=== PATIENT | female | born 1970 | race Hispanic/Latino ===

== ENCOUNTER 2018-10-26 16:18 | Emergency (ER) | payer OTHER ==
[~2018-10-26] VITALS: Ht 160 cm; Wt 98.0 kg
--- OUTSIDE RECORDS SUMMARY | 2018-10-26 16:20 | XMS REPORT ---
Author Author Laila Forrest [facility] eClinicalWorks Address Unknown Phone Unavailable Care Team Providers Care Paint Line Supervisor Name Role Phone Laila Forrest CP Unavailable Allergies, Adverse Reactions, Alerts Substance Reaction Event Type N.K.D.A. Info Not Available Non Drug Allergy Encounters Encounter Location Date 2 Weeks (Reason: Follow up of tests) Mahendra Forrest MD October 30, 2014 order Mahendra Forrest MD Mar 13, 2015 3m adrenal gland Mahendra Forrest MD February 04, 2015 edarby-clor change Mahendra Forrest MD November 27, 2014 1 Week (Reason: Follow up of urine catecholamines test) Mahendra Forrest MD November 05, 2014 Mass Kidney irregular hormones Mahendra Forrest MD October 15, 2014 Problems Problem Type Condition ICD-9 Code Onset Dates Condition Status Assessment Obesity, unspecified 278.00 Active Assessment Depression with anxiety 300.4 Active Problem Adrenal Gland Mass - Unspecified 239.7 Active Problem Obesity, unspecified 278.00 Active Problem 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 Assessment 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 Assessment Hypertension 401.1 Active Problem Hypertension 401.1 Active Problem Depression with anxiety 300.4 Active Medications Medication Code System Code Instructions Start Date End Date Status Dosage ondansetron MULTUM 54038 4 mg orally 3 times a day Active 1 tab(s) amoxicillin MULTUM 13168 875 mg orally 2 times a day Active 1 tab(s) Edarbyclor MULTUM 435632 40 mg-25 mg orally once a day October 30, 2014 Active 1 tab(s) alprazolam MULTUM 93801 1 mg orally once a day (in the morning) October 30, 2014 Active 1 tab(s) Benicar HCT MULTUM 43406 25 mg-40 mg orally once a day November 27, 2014 Active 1 tab(s) Social History Social History Element Qualifiers Date Reported Language: . Italian February 04, 2015 Marital Status: . February 04, 2015 Caffeine: yes. frequency:, 2 c/day February 04, 2015 Exercise: no. February 04, 2015 Smoking/Tobacco Use: no. Patient is a: Current Smoker cannabis February 04, 2015 Alcohol: socially. Occasional drinker February 04, 2015 Occupation: employed. [employer]er February 04, 2015 Vital Signs Date/Time: February 04, 2015 Weight 187 lbs Height 64 in Blood Pressure Diastolic 80 mm Hg Blood Pressure Systolic 136 mm Hg Summary Purpose eClinicalWorks Submission
--- OUTSIDE RECORDS SUMMARY | 2018-10-26 16:20 | XMS REPORT ---
Author Author [facility] Address Unknown Phone Unavailable Care Team Providers Care Property And Equipment Clerk Name Role Phone Unavailable Unavailable Problems This patient has no known problems. Allergies, Adverse Reactions, Alerts This patient has no known allergies or adverse reactions. Medications This patient has no known medications. Encounters Start Date/Time End Date/Time Encounter Type Admission Type Attending [facility] Care Department Encounter ID 2017-06-14 00:00:00 2017-06-15 00:00:00 [facility] [id number]
--- OUTSIDE RECORDS SUMMARY | 2018-10-26 16:20 | XMS REPORT ---
Author Author Laila Forrest Organization eClinicalWorks Address Unknown Phone Unavailable Care Team Providers Care Secondary Market Manager Name Role Phone Laila Forrest CP Unavailable Allergies, Adverse Reactions, Alerts Substance Reaction Event Type N.K.D.A. Info Not Available Non Drug Allergy Encounters Encounter Location Date 2 Weeks (Reason: Follow up of tests) Mahendra Forrest MD October 30, 2014 edarby-clor change Mahendra Forrest MD November 27, 2014 1 Week (Reason: Follow up of urine catecholamines test) Mahendra Forrest MD November 05, 2014 Mass Kidney irregular hormones Mahendra Forrest MD October 15, 2014 Problems Problem Type Condition ICD-9 Code Onset Dates Condition Status Assessment Obesity, unspecified 278.00 Active Assessment SCREEN LIPOID DISORDERS V77.91 Active Problem Obesity, unspecified 278.00 Active Problem Hypertension 401.1 Active Problem Adrenal Gland Mass - Unspecified 239.7 Active Assessment Hypertension 401.1 Active Assessment Depression with anxiety 300.4 Active Problem Depression with anxiety 300.4 Active Assessment Adrenal Gland Mass - Unspecified 239.7 Active Medications Medication Code System Code Instructions Start Date End Date Status Dosage amlodipine MULTUM 30738 5 mg orally daily Active 2 tabs Social History Social History Element Qualifiers Date Reported Language: . Azeri November 05, 2014 Marital Status: . November 05, 2014 Caffeine: yes. frequency:, 2 c/day November 05, 2014 Exercise: no. November 05, 2014 Smoking/Tobacco Use: no. Patient is a: Current Smoker cannabis November 05, 2014 Alcohol: socially. 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
--- OUTSIDE RECORDS SUMMARY | 2018-10-26 16:20 | XMS REPORT | Summary of Care ---
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) Status: Active Hematuria (599.70, R31.9) Status: Active Essential hypertension (401.9, I10) Status: Active Left-sided thoracic back pain (724.1, M54.6) Status: Active Abnormal finding on thyroid function test (794.5, R94.6) Status: Active Subclinical hyperthyroidism (242.90, E05.90) Status: Active Weight Gain Status: Active Hypothyroidism (244.9, E03.9) Status: Active Mass of left adrenal gland (255.9, E27.9) Status: Active Medications Name Dates Details No Reported Medications Active Allergies and Adverse Reactions Name Dates Details No Known Drug Allergies (Allergy) Status: Active Procedures Procedure Dates Details CT Abdomen w/wo contrast 37669 Date: 09-Jan-2018 History of Section Completed Immunization Name Dates Details Immunizations not documented Family History Name Dates Details Family history of hypertension (V17.49, Z82.49) Status: Active Family history of diabetes mellitus (V18.0, Z83.3) Status: Active Name Dates Details Family history of hypertension (V17.49, Z82.49) Status: Active Family history of diabetes mellitus (V18.0, Z83.3) Status: Active Social History Name Dates Details - Status: Name Dates Details Former smoker Vital Signs Date Test Result Details [id number] BP Systolic 149 mm[Hg] Status: Comments: Location: LUE; Position: Sitting BP Diastolic 90 mm[Hg] Status: Comments: Location: LUE; Position: Sitting Height 63 in Status: Weight 215 lb Status: Body Mass Index Calculated 38.09 kg/m2 Status: Body Surface Area Calculated 1.99 m2 Status: Temperature 98.6 f Status: Comments: Method: Oral Heart Rate 64 /min Status: Results Date Description Value Details Results not documented Plan of Care Name Dates Details Planned Observations Planned Goals not documented Planned Encounters Appointment; BRYANNA HEIN M.D. On: 08-Jan-2019 14:45 Interventions Provided Labs/Procedures/Imaging* CT Abdomen w/wo contrast 29589; To Be Done: 09 Jan 2018 Plan* #Left sided adrenal nodule/adenoma * - previously identified on prior imaging * - previous functional studies negative in 2017 * - will order CT adrenal protocol for monitoring of size * - will recall patient and obtain repeat functional studies (catecholamines, etc.) if there are any concerns on repeat imaging * - otherwise, pt will f/u in [address] scan is normal * - Pt will follow up with PCP for BP management Instructions Name Dates Details Instructions not documented Encounters Appointment; BRYANNA HEIN M.D. Encounter Diagnosis: Problem not documented On: 09-Jan-2018 14:30
--- OUTSIDE RECORDS SUMMARY | 2018-10-26 16:20 | XMS REPORT ---
Author Author Laila Forrest Organization eClinicalWorks Address Unknown Phone Unavailable Care Team Providers Care Welt Sewer Name Role Phone Laila Forrest CP Unavailable [...] ICD-9 Code Onset Dates Condition Status Assessment Hypertension 401.1 Active Problem Obesity, unspecified 278.00 Active Problem Hypertension 401.1 Active Problem Adrenal Gland Mass - Unspecified 239.7 Active Assessment Depression with anxiety 300.4 Active Assessment Obesity, unspecified 278.00 Active Problem Depression with anxiety 300.4 Active Assessment Adrenal Gland Mass - Unspecified 239.7 Active Medications Medication Code System Code Instructions Start Date End Date Status Dosage amoxicillin MULTUM 55838 875 mg orally 2 times a day Active 1 tab(s) Edarbyclor MULTUM 897194 40 mg-25 mg orally once a day October 30, 2014 Active 1 tab(s) alprazolam MULTUM 87808 1 mg orally once a day (in the morning) October 30, 2014 Active 1 tab(s) ondansetron MULTUM 04679 4 mg orally 3 times a day Active 1 tab(s) amlodipine MULTUM 59446 5 mg orally daily Active 2 tabs Social History Social History Element Qualifiers Date Reported Language: . Turkish November 05, 2014 Marital Status: . November 05, 2014 Caffeine: yes. frequency:, 2 c/day November 05, 2014 Exercise: no. November 05, 2014 Smoking/Tobacco Use: no. Patient is a: Current Smoker cannabis November 05, 2014 Alcohol: socially. 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
--- OUTSIDE RECORDS SUMMARY | 2018-10-26 16:20 | XMS REPORT ---
Author Author Laila Forrest [facility] eClinicalWorks Address Unknown Phone Unavailable Care Team Providers Care Center Machine Set Up Operator Name Role Phone Laila Forrest CP Unavailable Allergies, Adverse Reactions, Alerts Substance Reaction Event Type N.K.D.A. Info Not Available Non Drug Allergy Encounters Encounter Location Date 2 Weeks (Reason: Follow up of tests) Maehndra Forrest MD October 30, 2014 order Mahendra [...] Date End Date Status Dosage ondansetron MULTUM 34500 4 mg orally 3 times a day Active 1 tab(s) amoxicillin MULTUM 03963 875 mg orally 2 times a day Active 1 tab(s) Edarbyclor MULTUM 757721 40 mg-25 mg orally once a day October 30, 2014 Active 1 tab(s) alprazolam MULTUM 50534 1 mg orally once a day (in the morning) October 30, 2014 Active 1 tab(s) Benicar HCT MULTUM 94651 25 mg-40 mg orally once a day November 27, 2014 Active 1 tab(s) Social History Social History Element Qualifiers Date Reported Language: . Bahraini February 04, 2015 Marital Status: . February 04, 2015 Caffeine: yes. frequency:, 2 c/day February 04, 2015 Exercise: no. February 04, 2015 Smoking/Tobacco Use: no. Patient is a: Current Smoker cannabis February 04, 2015 Alcohol: socially. 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
--- OUTSIDE RECORDS SUMMARY | 2018-10-26 16:20 | XMS REPORT ---
Author Author Laila Forrest Organization eClinicalWorks Address Unknown Phone Unavailable Care Team Providers Care Surgical Assistant Certified Name Role Phone Laila Forrest CP Unavailable Encounters Encounter Location Date 2 Weeks (Reason: Follow up of tests) Mahendra Forrest MD October 30, 2014 order Mahendra Forrest MD Mar 13, 2015 edarby-clor change Mahendra Forrest MD November 27, 2014 1 Week (Reason: Follow up of urine catecholamines test) Mahendra Forrest MD November 05, 2014 Mass Kidney irregular hormones Mahendra Forrest MD October 15, 2014 Problems Problem Type Condition ICD-9 Code Onset Dates Condition Status Problem Adrenal Gland Mass - Unspecified 239.7 Active Problem Obesity, unspecified 278.00 Active Problem 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 Fijian February 04, 2015 Marital Status: . February 04, 2015 Caffeine: yes. frequency:, 2 c/day February 04, 2015 Exercise: no. February 04, 2015 Smoking/Tobacco Use: no. Patient is a: Current Smoker cannabis February 04, 2015 Alcohol: socially. 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
--- OUTSIDE RECORDS SUMMARY | 2018-10-26 16:20 | XMS REPORT | Continuity of Care Document ---
Author Author [facility] Address Unknown Phone Unavailable Problems Problem Status Onset Date Classification Date Reported Comments Source Obesity, unspecified Active Diagnosis 07/07/2015 Mahendra Forrest SCREEN LIPOID DISORDERS Active Diagnosis 12/15/2014 Mahendra Forrest Hypertension Active Diagnosis 07/07/2015 Mahendra Forrest Adrenal Gland Mass - Unspecified Active Problem 07/07/2015 Mahendra Forrest Depression with anxiety Active Diagnosis 07/07/2015 Mahendra Forrest Adrenal incidentaloma Active Problem 07/07/2015 Mahendra Forrest Medications Medication Details Route Status Patient Instructions Ordering Provider Order Date Source Benicar HCT 1 tab(s) orally Active 25 mg-40 mg orally once a day Adriane 11/27/2014 Mahendra Forrest Edarbyclor 1 tab(s) orally Active 40 mg-25 mg orally once a day Adriane 10/30/2014 Mahendra Forrest alprazolam 1 tab(s) orally Active 1 mg orally once a day (in the morning) Adriane 10/30/2014 Mahendra Forrest amlodipine 2 tabs orally Active 5 mg orally daily Adriane Forrest ondansetron 1 tab(s) orally Active 4 mg orally 3 times a day Adriane Forrest amoxicillin 1 tab(s) orally Active 875 mg orally 2 times a day Adriane Forrest Allergies, Adverse Reactions, Alerts Substance Category Reaction Severity Reaction type Status Date Reported Comments Source N.K.D.A. Adverse Reaction Info Not Available Adverse Reaction Active 02/04/2015 Mahendra Forrest Immunizations Immunization Date Given Site Status Last Updated Comments Source Results Order Name Results Value Reference Range Date Interpretation Comments Source Vital Signs Vital Sign Value Date Comments Source Weight 187 02/04/2015 Mahendra Forrest Height 64 02/04/2015 Mahendra Forrest Diastolic (mm Hg) 80 02/04/2015 Mahendra Forrest Systolic (mm Hg) 136 02/04/2015 Mahendra Forrest Weight 177 10/30/2014 Mahendra Forrest Height 64 10/30/2014 Mahendra Forrest Diastolic (mm Hg) 106 10/30/2014 Mahendra Forrest Systolic (mm Hg) 182 10/30/2014 Mahendra Forrest Weight 184 10/15/2014 Mahendra Forrest Height 64 10/15/2014 Mahendra Forrest Diastolic (mm Hg) 80 10/15/2014 Mahendra Forrest Systolic (mm Hg) 133 10/15/2014 Mahendra Forrest Encounters Location Location Details Encounter Type Encounter Number Reason For Visit Attending Provider ADM Date DC Date Status Source Mahendra Forrest MD Mass Kidney irregular hormones [id number] 10/15/2014 10/15/2014 Mahendra Stevens MD Mass Kidney irregular hormones [id number] 10/15/2014 10/15/2014 Mahendra Stevens MD Mass Kidney irregular hormones [id number] 10/15/2014 10/15/2014 Mahendra Stevens MD Mass Kidney irregular hormones [id number] 10/15/2014 10/15/2014 Mahendra Stevens MD Mass Kidney irregular hormones [id number] 10/15/2014 10/15/2014 Mahendra Stevens MD 2 Weeks (Reason: Follow up of tests) [id number] 10/30/2014 10/30/2014 Mahendra Stevens MD 2 Weeks (Reason: Follow up of tests) [id number] 10/30/2014 10/30/2014 Mahendra Stevens MD 2 Weeks (Reason: Follow up of tests) [id number] 10/30/2014 10/30/2014 Mahendra Stevens MD 2 Weeks (Reason: Follow up of tests) [id number] 10/30/2014 10/30/2014 Mahendra Stevens MD 2 Weeks (Reason: Follow up of tests) [id number] 10/30/2014 10/30/2014 Mahendra Stevens MD 1 Week (Reason: Follow up of urine catecholamines test) [id number] 11/05/2014 11/05/2014 Mahendra Stevens MD 1 Week (Reason: Follow up of urine catecholamines test) [id number] 11/05/2014 11/05/2014 Mahendra Stevens MD 1 Week (Reason: Follow up of urine catecholamines test) [id number] 11/05/2014 11/05/2014 Mahendra Stevens MD 1 Week (Reason: Follow up of urine catecholamines test) [id number] 11/05/2014 11/05/2014 Mahendra Stevens MD 1 Week (Reason: Follow up of urine catecholamines test) [id number] 11/05/2014 11/05/2014 Mahendra Stevens MD edarby-clor change [id number] 11/27/2014 11/27/2014 Mahendra Stevens MD edarby-clor change [id number] 11/27/2014 11/27/2014 Mahendra Stevens MD edarby-clor change [id number] 11/27/2014 11/27/2014 Mahendra Stevens MD edarby-clor change [id number] 11/27/2014 11/27/2014 Mahendra Forrest, Mahendra GAMBINO edarbmarquis-clor change [id number] 11/27/2014 11/27/2014 Mahendra Stevens MD 3m adrenal gland [id number] 02/04/2015 02/04/2015 Mahendra Stevens MD 3m adrenal gland [id number] 02/04/2015 02/04/2015 Mahendra Stevens MD order [id number] 03/13/2015 03/13/2015 Mahendra Stevens MD order [id number] 03/13/2015 03/13/2015 Mahendra Stevens MD order [id number] 03/13/2015 03/13/2015 Mahendra Forrest Procedures Procedure Code Date Perfomer Comments Source
[2018-10-26] MEDS ORDERED: SODIUM CHLORIDE 0.9% 1000ML 1,000 ML IV STA (16:44)
[2018-10-26] MEDS ORDERED: HYDROCODONE/APAP 5MG-325MG TAB PO ONE (16:45)
[2018-10-26] MEDS ORDERED: KETOROLAC TROMETHAMINE 30 MG/ML VIAL IV ONE (16:45)
[2018-10-26] MEDS ORDERED: ONDANSETRON HCL INJ 2MG/ML 2ML 2 MG/ML VIAL IV ONE (16:45)
--- NOTE | 2018-10-26 18:33 | Diagnostic Imaging Report ---
EXAM: CT Abdomen and Pelvis WITH contrast INDICATION: Lower abdominal pain. Stomach pain. COMPARISON: None TECHNIQUE: Abdomen and pelvis were scanned utilizing a multidetector helical scanner from the lung base to the pubic symphysis after administration of IV contrast. Coronal and sagittal reformations were obtained. Routine protocol was performed. Scan was performed when during portal venous phase. IV CONTRAST: 100 mL of Isovue-370 ORAL CONTRAST: Water COMPLICATIONS: None RADIATION DOSE: Total DLP: 814.26 mGy*cm Estimated effective dose: (DLP x 0.015 x size factor) mSv CTDIvol has been reviewed. It is below the limits set by the Radiation Protocol Committee (RPC). Dose modulation, iterative reconstruction, and/or weight based adjustment of the mA/kV was utilized to reduce the radiation dose to as low as reasonably achievable. FINDINGS: LOWER THORAX: Unremarkable HEPATOBILIARY: No focal hepatic lesions. No biliary ductal dilation. Gallbladder unremarkable. SPLEEN: No splenomegaly or focal splenic lesions. Splenic granulomas are unchanged. PANCREAS: No focal masses or ductal dilation. ADRENALS: 2.5 cm left adrenal gland mass. KIDNEYS/URETERS: Unremarkable. No hydronephrosis, hydroureter or perinephric fat stranding. PELVIC ORGANS/BLADDER: Likely right adnexal corpus luteal cyst. Urinary bladder unremarkable. PERITONEUM / RETROPERITONEUM: No free air or fluid. LYMPH NODES: Slightly prominent periaortic lymph nodes could be reactive. VESSELS: Unremarkable. GI TRACT: Scattered diverticulosis with inflammatory change surrounding the sigmoid colon best seen on axial series 2 image 74 consistent with diverticulitis. No evidence of perforation or abscess. No bowel obstruction. BONES: No acute osseous lesion. SOFT TISSUES: Unremarkable. IMPRESSION: Scattered diverticulosis with inflammatory change surrounding the sigmoid colon best seen on axial series 2 image 74 consistent with diverticulitis. No evidence of perforation or abscess. No bowel obstruction. 2.5 cm left adrenal gland mass. This could be due to an adenoma. Nonemergent CT scan adrenal mass protocol recommended. Signed by: Dr. Andres Venegas M.D. on 10/26/2018 6:30 PM
== END 2018-10-26 18:56 | disposition home or self-care (01) ==
LOC: FSED 16:18
DX: R10.31 Right lower quadrant pain (principal); R10.32 Left lower quadrant pain; R10.2 Pelvic and perineal pain; K57.32 Diverticulitis of large intestine without perforation or abscess without bleeding; I10 Essential (primary) hypertension
CPT/HCPCS: 74177; 99284; J1885; J2405; J7030

== ENCOUNTER 2020-08-29 22:07 | Emergency (ER) | payer OTHER ==
[~2020-08-29] VITALS: Ht 157.5 cm; Wt 86.2 kg
[2020-08-29] MEDS ORDERED: CYCLOBENZAPRINE HCL 10 MG TAB PO ONE (23:30)
[2020-08-29] MEDS ORDERED: HYDROCODONE/APAP 5MG-325MG TAB PO ONE (23:30)
[2020-08-29] MEDS ORDERED: PREDNISONE 20 MG TAB ONE (23:30)
[2020-08-29] MEDS ORDERED: CYCLOBENZAPRINE HCL 10 MG TAB ONE (23:30)
[2020-08-29] MEDS ORDERED: PREDNISONE 20 MG TAB PO ONE (23:30)
[2020-08-29] MEDS ORDERED: HYDROCODONE/APAP 5MG-325MG TAB ONE (23:31)
[2020-08-29] MEDS ORDERED: CYCLOBENZAPRINE10 MG PO (23:36)
[2020-08-29] MEDS ORDERED: TYLENOL # 31 EA PO (23:37)
[2020-08-29] MEDS ORDERED: PREDNISONE20 MG PO (23:40)
== END 2020-08-29 23:50 | disposition home or self-care (01) ==
LOC: FSED 22:25
DX: M54.12 Radiculopathy, cervical region (principal); M54.6 Pain in thoracic spine; I10 Essential (primary) hypertension; E66.9 Obesity, unspecified
CPT/HCPCS: 81003; 81025; 99283; J7512

== ENCOUNTER 2022-09-23 10:57 | Observation (INO) | payer OTHER ==
[~2022-09-23] VITALS: Ht 160 cm; Wt 92.5 kg
[2022-09-23] VITALS (8 sets, daily range): BP systolic 145–157; BP diastolic 80–90
[~2022-09-23 10:57] MED LIST: CYCLOBENZAPRINE10 MG PO; PREDNISONE20 MG PO; TYLENOL # 31 EA PO
[2022-09-23] MEDS ORDERED: PROMETHAZINE 25MG/ NS 50ML (IV) IV ONE (11:30)
[2022-09-23] MEDS ORDERED: HYDRALAZINE HCL 20 MG/ML VIAL IV ONE (11:30)
[2022-09-23] MEDS ORDERED: ACETAMINOPHEN 325 MG TAB PO ONE (11:30)
[2022-09-23] MEDS ORDERED: FAMOTIDINE 20 MG/2 ML VIAL IV ONE ×3 (11:30→12:08)
[2022-09-23] MEDS ORDERED: ASPIRIN 325 MG TAB PO ONE (11:30)
[2022-09-23] MEDS ORDERED: SODIUM CHLORIDE 0.9% 500ML 500 ML IV STA (11:30)
[2022-09-23] MEDS ORDERED: PROMETHAZINE HCL (IM) 25 MG/ML VIAL IM ONE (11:58)
[2022-09-23] MEDS ORDERED: ACETAMINOPHEN 325 MG TAB ONE (11:58)
[2022-09-23] MEDS ORDERED: ASPIRIN 325 MG TAB ONE (11:58)
[2022-09-23] MEDS ORDERED: HYDRALAZINE HCL 20 MG/ML VIAL ONE (11:58)
[2022-09-23] MEDS ORDERED: SODIUM CHLORIDE 0.9% 1000ML 0 ML ONE (11:59)
[2022-09-23] MEDS ORDERED: LISINOPRIL10 MG PO (12:00)
[2022-09-23] MEDS ORDERED: CLONIDINE HCL0.1 M1 (12:00)
[2022-09-23] MEDS ORDERED: SODIUM CHLORIDE 0.9% 500ML 500 ML ONE (12:08)
[2022-09-23] MEDS ORDERED: ZOLPIDEM TARTRATE 5 MG TAB PO PRN (12:15)
[2022-09-23] MEDS ORDERED: ONDANSETRON HCL INJ 2MG/ML 2ML 2 MG/ML VIAL IV PRN (12:15)
[2022-09-23] MEDS ORDERED: ENALAPRILAT IV INJ 1.25 MG/ML VIAL IV PRN (12:15)
[2022-09-23] MEDS ORDERED: DIPHENHYDRAMINE HCL INJ 50 MG/ML VIAL IV PRN (12:15)
[2022-09-23] MEDS: FAMOTIDINE 20 MG TAB PO SCH ×2 (12:59→20:49)
[2022-09-23] MEDS: ACETAMINOPHEN 325 MG TAB PO PRN (15:30)
[2022-09-23] MEDS: LISINOPRIL 20 MG TAB PO SCH (17:00)
[2022-09-23] MEDS: NIFEDIPINE CR 30 MG TAB PO SCH (17:02)
[2022-09-23] MEDS: SODIUM CHLORIDE 0.9% 1000ML 1,000 ML IV SCH (17:02)
[2022-09-24] VITALS: BP 146/69
[2022-09-24 04:00] VITALS: BP 125/80
[2022-09-24] MEDS: SODIUM CHLORIDE 0.9% 1000ML 1,000 ML IV SCH (04:11)
[2022-09-24] MEDS: ACETAMINOPHEN 325 MG TAB PO PRN ×2 (04:11→10:36)
[2022-09-24 06:07] LABS: CREATINE KINASE MB 1.8 ng/mL (0-5.0)
[2022-09-24 06:44] LABS: CHOL/HDL RATIO 2.6 (3.0-3.6)
[2022-09-24 08:12] VITALS: BP 143/84
[2022-09-24] MEDS ORDERED: ASPIRIN 325 MG TAB EC PO SCH (09:00)
[2022-09-24] MEDS ORDERED: AMLODIPINE BESYLATE 5 MG TAB PO SCH (09:00)
[2022-09-24 09:06] VITALS: BP 143/84
[2022-09-24] MEDS: NIFEDIPINE CR 30 MG TAB PO SCH (09:43)
[2022-09-24] MEDS: LISINOPRIL 20 MG TAB PO SCH (09:44)
[2022-09-24] MEDS: FAMOTIDINE 20 MG TAB PO SCH (09:44)
[2022-09-24 13:06] LABS: CREATINE KINASE 113 IU/L (29-168)
[2022-09-24 13:32] VITALS: BP 159/86
[2022-09-24] MEDS ORDERED: ACETAMINOPHEN/CODEINE 300MG - 30MG TAB PO PRN (14:45)
[2022-09-24 15:51] VITALS: BP 136/78
== END 2022-09-24 18:07 | disposition home or self-care (01) ==
LOC: FSED 11:13 → ERHOLD 12:15 → MED/SURG3 14:51
PROVIDERS: ADMIT Internal Medicine; ATTEND Internal Medicine
DX: I16.0 Hypertensive urgency (principal); R00.1 Bradycardia, unspecified; R51.9 Headache, unspecified; R42 Dizziness and giddiness; Z20.822 Contact with and (suspected) exposure to COVID-19; G89.29 Other chronic pain; E66.09 Other obesity due to excess calories; Z68.36 Body mass index [BMI] 36.0-36.9, adult
CPT/HCPCS: 36415; 70450; 71046; 80053; 80061; 81003; 81025; 82550; 82553 ×2; 84484 ×2; 85025; 93005; 93306; 99284; G0378 ×2; J0360; J2550; J7030 ×2; J7040; U0002